=== PATIENT | female | born 1985 | race Hispanic/Latino ===

== ENCOUNTER 2016-09-13 18:57 | Emergency (ER) | payer OTHER ==
[2016-09-13 19:05] VITALS: BP 123/81; PULSE 73; RESP 20; O2SAT 96
[2016-09-13] MEDS ORDERED: Absorbable Gelatin Sponge Size 100 TP ONE (19:29)
--- NOTE | 2016-09-13 19:40 | ED PDOC ---
HPI: Skin/Bite Injury Time Seen by Provider: 09/13/16 19:17 Chief Complaint (Nursing): Abnormal Skin Integrity Chief Complaint (Provider): left finger laceration History Per: Patient History/Exam Limitations: no limitations Onset/Duration Of Symptoms: Mins (prior to arrival) Current Symptoms Are (Timing): Still Present Additional Complaint(s): Sarah Atwood is a 31 year old female, with a previous medical history of anxiety , who presents to the ED for the evaluation of a laceration she sustained on her index finger of her left hand prior to arrival. Pt reports she was chopping garlic when she accidentally cut herself. Pt denies any numbness or tingling to the finger. Pt states her tetanus is up to date. PE: none provided Past Medical History Reviewed: Historical Data, Nursing Documentation, Vital Signs Vital Signs: Last Vital Signs Temp 97.9 F 09/13/16 20:09 Pulse 73 09/13/16 18:59 Resp 20 09/13/16 18:59 BP 123/81 09/13/16 18:59 Pulse Ox 96 09/13/16 20:04 - Medical History PMH: Anxiety - Surgical History Surgical History: No Surg Hx - Family History Family History: States: Unknown Family Hx - Home Medications Home Medications: Ambulatory Orders Medication Instructions Recorded Cephalexin [cephalexin] 500 mg PO BID #20 cap 09/13/16 - Allergies Allergies/Adverse Reactions: Allergies Allergy/AdvReac Type Severity Reaction Status Date / Time No Known Allergies Allergy Verified 09/13/16 18:59 Review of Systems ROS Statement: Except As Marked, All Systems Reviewed And Found Negative Skin: Positive for: Other (laceration of the index finger of the left hand ) Neurological: Negative for: Numbness, Other (tingling ) Physical Exam - Reviewed Nursing Documentation Reviewed: Yes Vital Signs Reviewed: Yes - Physical Exam Appears: Positive for: Well, Non-toxic, No Acute Distress Head Exam: Positive for: ATRAUMATIC, NORMAL INSPECTION, NORMOCEPHALIC Extremity: Positive for: Normal ROM, Other (avulsion of 2nd DIP radial aspect of the index finger left hand. ) Neurologic/Psych: Positive for: Alert, Oriented - ECG O2 Sat by Pulse Oximetry: 96 (RA) Pulse Ox Interpretation: Normal Medical Decision Making Medical Decision Making: Initial Impression: Avulsion Initial Plan: * gelatine sponge * ultram * reevaluation wound irrigated with betadine and normal saline. Wound wrapped and finger splint placed. Scribe Attestation: Documented by Erna Butterfield, acting as a scribe for Stefanie Royal PA-C. Provider Scribe Attestation: All medical record entries made by the Scribe were at my direction and personally dictated by me. I have reviewed the chart and agree that the record accurately reflects my personal performance of the history, physical exam, medical decision making, and the department course for this patient. I have also personally directed, reviewed, and agree with the discharge instructions and disposition Disposition - Clinical Impression Clinical Impression: Laceration - Disposition Referrals: John Atkins MD [Staff Provider] - Disposition Time: 20:00 Condition: STABLE Prescriptions: Cephalexin [cephalexin] 500 mg PO BID #20 cap Instructions: Skin Avulsion (ED)
[2016-09-13] MEDS ORDERED: Absorbable Gelatin Sponge Size 12-7 ONE (19:41)
[2016-09-13 20:10] VITALS: TEMP 97.9
== END 2016-09-13 20:09 | disposition home or self-care (01) ==
LOC: H.ER 18:57
DX: S61.211A Laceration without foreign body of left index finger without damage to nail, initial encounter (principal); W26.0XXA Contact with knife, initial encounter; Y92.000 Kitchen of unspecified non-institutional (private) residence as the place of occurrence of the external cause